=== PATIENT | female | born 1960 | race Caucasian/White ===

== ENCOUNTER → 2017-01-17 16:41 | Outpatient (CLI) | payer BC ==
[2015-08-22 09:54] VITALS: BMI 23.5
[~2017-01-17 16:41] MED LIST: CALCIUM 500 + D1 TAB PO; LINZESS145 MCG PO; MULTIPLE VITAMI1 TA1 PO; VITAMIN C1000 MG PO
== END | disposition home or self-care (01) ==
LOC: D.MAMMO 07:30
DX: Z12.31 Encounter for screening mammogram for malignant neoplasm of breast (principal)

== ENCOUNTER → 2017-04-02 12:57 | Outpatient (CLI) | payer BC ==
[2015-08-22 09:54] VITALS: BMI 23.5
== END | disposition home or self-care (01) ==
LOC: D.US 08:00
DX: E04.1 Nontoxic single thyroid nodule (principal)

== ENCOUNTER → 2017-05-29 12:32 | Outpatient (CLI) | payer BC ==
[2015-08-22 09:54] VITALS: BMI 23.5
[2017-05-29 13:02] LABS: BASOPHILS 0.2 % (0-2); EOSINOPHILS 2.1 % (0-7); HEMOGLOBIN 13.9 g/dL (12-16); LYMPHOCYTES 49.4 % (15-50); MCH 29.3 pg (26.0-34.0); MCHC 33.1 g/dL (31.0-37.0); MCV 88.4 fL (80.0-100.0); MEAN PLATELET VOLUME 9.1 fL (7.4-10.4); MONOCYTES 6.9 % (2-11); NEUTROPHILS 41.4 % (40-80); RBC 4.75 10x6/uL (4.00-5.40); WBC 4.2 10x3/uL (4.8-10.8)
[2017-05-29 13:06] LABS: PLATELET COUNT 311 10x3/uL (130-400)
[2017-05-29 13:07] LABS: HEMOGLOBIN A1C 5.8 % (4.8-6.0)
[2017-05-29 13:19] LABS: ALBUMIN 3.8 g/dL (3.4-5.0); ALKALINE PHOSPHATASE 110 U/L (46-116); ALT (SGPT) 36 U/L (10-68); BILIRUBIN - TOTAL 0.24 mg/dL (0.2-1.3); CALC OSMOLALITY 278 mosm/kg (275-300); CALCIUM 9.3 mg/dL (8.5-10.1); CARBON DIOXIDE 29.5 mmol/L (21.0-32.0); CHLORIDE - SERUM 102 mmol/L (98-107); CHOLESTEROL, TOTAL 220 mg/dL (0-200); CREATINE KINASE 62 UL (21-215); CREATININE - SERUM 0.7 mg/dL (0.6-1.3); GLUCOSE 78 mg/dL (74-106); HDL CHOLESTEROL 74 mg/dL (32-96); LDL CHOLESTEROL 127 mg/dL (0-100); LDL-HDL RATIO 1.7 ratio (1.5-3.5); POTASSIUM - SERUM 4.2 mmol/L (3.5-5.1); PROTEIN - SERUM 7.5 g/dL (6.4-8.2); SODIUM 140 mmol/L (136-145); T4 THYROXIN - FREE 1.04 ng/dL (0.76-1.46); THYROID STIMULATING HORMONE 8.89 uIU/mL (0.36-3.74); TRIGLYCERIDE 99 mg/dL (30-200); UREA NITROGEN 16 mg/dL (7-18); eGFR NON AFRICAN AMERICAN > 90 mL/min (90-120)
[2017-05-29 13:28] LABS: APPEARANCE HAZY (CLEAR); BILIRUBIN NEGATIVE (NEGATIVE); COLOR YELLOW (YELLOW); GLUCOSE NEGATIVE (NEGATIVE); KETONE NEGATIVE (NEGATIVE); LEUKOCYTE ESTERASE TRACE (NEGATIVE); NITRITE NEGATIVE (NEGATIVE); PROTEIN NEGATIVE (NEGATIVE); UROBILINOGEN NORMAL (NORMAL)
[2017-05-29 13:30] LABS: BACTERIA MODERATE /hpf (NONE SEEN); MUCUS <1+ /lpf (NONE SEEN); RED CELLS - URINE 0-5 /hpf (0-5)
[2017-05-30 06:13] LABS: T3 - FREE 3.3 pg/mL (2.0-4.4); VITAMIN D 25 HYDROXY 33.2 ng/mL (30.0-100.0)
[2017-05-30 10:17] LABS: THYROGLOBULIN ANTIBODY 0.2 IU/mL (0.0-0.9)
== END | disposition home or self-care (01) ==
LOC: D.LAB 10:00
PROVIDERS: Internal Medicine
DX: E04.1 Nontoxic single thyroid nodule (principal)

== ENCOUNTER → 2017-06-14 06:43 | Outpatient (CLI) | payer BC ==
[2015-08-22 09:54] VITALS: BMI 23.5
== END | disposition home or self-care (01) ==
LOC: D.US 06-12 08:00 → D.LAB 06-13 11:15
DX: E04.2 Nontoxic multinodular goiter (principal)

== ENCOUNTER → 2018-02-26 16:32 | Outpatient (CLI) | payer BC ==
[2015-08-22 09:54] VITALS: BMI 23.5
== END | disposition home or self-care (01) ==
LOC: D.MAMMO 13:00
DX: Z12.31 Encounter for screening mammogram for malignant neoplasm of breast (principal)

== ENCOUNTER → 2018-03-20 20:29 | Outpatient (CLI) | payer BC ==
[2015-08-22 09:54] VITALS: BMI 23.5
== END | disposition home or self-care (01) ==
LOC: D.MAMMO 09:00
DX: R92.8 Other abnormal and inconclusive findings on diagnostic imaging of breast (principal)

== ENCOUNTER → 2018-09-18 06:12 | Outpatient (CLI) | payer BC ==
[2015-08-22 09:54] VITALS: BMI 23.5
[2018-09-18 08:05] LABS: BASOPHILS 0.2 % (0-2); EOSINOPHILS 3.1 % (0-7); HEMATOCRIT 40.3 % (36.0-48.0); HEMOGLOBIN 13.4 g/dL (12-16); LYMPHOCYTES 34.4 % (15-50); MCHC 33.3 g/dL (31.0-37.0); MCV 87.2 fL (80.0-100.0); MEAN PLATELET VOLUME 8.5 fL (7.4-10.4); MONOCYTES 8.6 % (2-11); NEUTROPHILS 53.7 % (40-80); PLATELET COUNT 316 10x3/uL (130-400); RBC 4.62 10x6/uL (4.00-5.40); RDW 13.1 % (11.5-14.5); WBC 4.2 10x3/uL (4.8-10.8)
[2018-09-18 08:23] LABS: APPEARANCE CLEAR (CLEAR); BACTERIA FEW /hpf (NONE SEEN); BILIRUBIN NEGATIVE (NEGATIVE); COLOR YELLOW (YELLOW); EPITHELIAL CELLS 0-5 /hpf (0-5); GLUCOSE NEGATIVE (NEGATIVE); KETONE NEGATIVE (NEGATIVE); MUCUS <1+ /lpf (NONE SEEN); NITRITE NEGATIVE (NEGATIVE); PROTEIN NEGATIVE (NEGATIVE); SPECIFIC GRAVITY 1.015 (1.005-1.020); UROBILINOGEN NORMAL (NORMAL); WHITE CELLS - URINE 0-5 /hpf (0-5)
[2018-09-18 08:25] LABS: ALBUMIN 3.7 g/dL (3.4-5.0); ANION GAP 11.7 mmol/L (8-16); BILIRUBIN - TOTAL 0.25 mg/dL (0.2-1.3); CARBON DIOXIDE 26.4 mmol/L (21.0-32.0); CHOL - HDL RATIO 3.2 ratio (2.3-4.1); CREATININE - SERUM 0.9 mg/dL (0.6-1.3); POTASSIUM - SERUM 4.1 mmol/L (3.5-5.1); PROTEIN - SERUM 7.7 g/dL (6.4-8.2); THYROID STIMULATING HORMONE 4.57 uIU/mL (0.36-3.74)
== END | disposition home or self-care (01) ==
LOC: D.LAB 06:12
PROVIDERS: Internal Medicine
DX: R73.01 Impaired fasting glucose (principal)

== ENCOUNTER → 2019-03-03 16:38 | Outpatient (CLI) | payer BC ==
[2015-08-22 09:54] VITALS: BMI 23.5
== END | disposition home or self-care (01) ==
LOC: D.MAMMO 01-13 08:30
PROVIDERS: ATTEND Internal Medicine
DX: Z12.31 Encounter for screening mammogram for malignant neoplasm of breast (principal)

== ENCOUNTER → 2019-12-07 07:03 | Outpatient (CLI) | payer BC ==
[2015-08-22 09:54] VITALS: BMI 23.5
[2019-12-07 08:12] LABS: INR 1.04 (0.85-1.17); PROTIME 13.2 SECONDS (11.6-15.0)
[2019-12-07 08:38] LABS: ALBUMIN 3.6 g/dL (3.4-5.0); ALKALINE PHOSPHATASE 113 U/L (46-116); ALT (SGPT) 32 U/L (10-68); BILIRUBIN - TOTAL 0.36 mg/dL (0.2-1.3); CALC OSMOLALITY 277 mosm/kg (275-300); CALCIUM 8.9 mg/dL (8.5-10.1); CARBON DIOXIDE 26.7 mmol/L (21.0-32.0); CHLORIDE - SERUM 103 mmol/L (98-107); CHOL - HDL RATIO 2.9 ratio (2.3-4.1); CHOLESTEROL, TOTAL 250 mg/dL (0-200); CREATINE KINASE 74 UL (21-215); CREATININE - SERUM 0.8 mg/dL (0.6-1.3); GLUCOSE 100 mg/dL (74-106); HDL CHOLESTEROL 85 mg/dL (32-96); LDL CHOLESTEROL 148 mg/dL (0-100); LDL-HDL RATIO 1.7 ratio (1.5-3.5); SODIUM 138 mmol/L (136-145); THYROID STIMULATING HORMONE 4.62 uIU/mL (0.36-3.74); TRIGLYCERIDE 88 mg/dL (30-200); UREA NITROGEN 18 mg/dL (7-18); eGFR NON AFRICAN AMERICAN 78 mL/min (90-120)
[2019-12-07 09:05] LABS: APPEARANCE CLEAR (CLEAR); BILIRUBIN NEGATIVE (NEGATIVE); COLOR YELLOW (YELLOW); GLUCOSE NEGATIVE (NEGATIVE); KETONE NEGATIVE (NEGATIVE); NITRITE NEGATIVE (NEGATIVE); PROTEIN NEGATIVE (NEGATIVE); SPECIFIC GRAVITY 1.015 (1.005-1.020); UROBILINOGEN NORMAL (NORMAL)
[2019-12-07 09:06] LABS: BACTERIA MODERATE /hpf (NEGATIVE); EPITHELIAL CELLS 0-5 /hpf (0-5); MUCUS <1+ /lpf (NONE SEEN); RED CELLS - URINE OCC /hpf (0-5); WHITE CELLS - URINE NSEEN /hpf (NEGATIVE)
[2019-12-09 12:09] LABS: PROTEIN S - FREE 93 % (57-157); PROTEIN S - FUNCTIONAL 98 % (63-140); PROTEIN S - TOTAL 99 % (60-150)
== END | disposition home or self-care (01) ==
LOC: D.LAB 07:00
PROVIDERS: ATTEND Internal Medicine
DX: Z82.49 Family history of ischemic heart disease and other diseases of the circulatory system (principal); E03.4 Atrophy of thyroid (acquired); E78.5 Hyperlipidemia, unspecified; E04.1 Nontoxic single thyroid nodule; R73.01 Impaired fasting glucose

== ENCOUNTER 2020-05-17 08:30 | Outpatient (CLI) | payer BC ==
[2015-08-22 09:54] VITALS: BMI 23.5
== END 2020-05-17 09:00 | disposition home or self-care (01) ==
LOC: D.MAMMO 08:30
PROVIDERS: ATTEND Internal Medicine
DX: Z12.31 Encounter for screening mammogram for malignant neoplasm of breast (principal)